=== PATIENT | female | born 1955 | race Hispanic/Latino ===

== ENCOUNTER 2019-01-24 15:25 | Observation (INO) | payer OTHER ==
[~2019-01-24] VITALS: Ht 152.4 cm; Wt 71.7 kg
--- OUTSIDE RECORDS SUMMARY | 2019-01-24 15:28 | XMS REPORT ---
Author Author [facility] Address Unknown Phone Unavailable Care Team Providers Care Public Interviewer Name Role Phone AFSANEH MCADAMS Unavailable Unavailable SNEHA CAMILO Unavailable Unavailable CECILIO RIVERA Unavailable Unavailable Problems This patient has no known problems. Allergies, Adverse Reactions, Alerts This patient has no known allergies or adverse reactions. Medications This patient has no known medications. Results Test Description Test Time Test Comments Text Results Atomic Results Result Comments TISSUE EXAM 2018-04-11 13:15:00 Surgical Pathology Report Case: [id number] Authorizing Provider: Jw Mcadams MD Collected: 03/31/2018 1130 Ord ering Location: [facility] Received: 03/31/2018 1430 SERVICES Pathologist: Dianne Valentine MD Specimens: A) - Lymph Node, Sumner, Left Axilla B) - Mass, LEFT BREAST LUMPECTOMY,SHORT STITCH=SUPERIOR, LONG STITCH=LATERAL A. LYMPH NODES, LEFT AXILLARY SENTINEL, BIOPSY: - THREE BENIGN LYMPH NODES (0/3) - NO FIBROUS SCARRING IDENTIFIEDB. BREAST, LEFT, NEEDLE GUIDED LUMPECTOMY: - NO RESIDUAL CARCINOMA IDENTIFIED, PATHOLOGICAL COMPLETE RESPONSE (PCR) - COLUMNAR CELL CHANGES - USUAL DUCTAL HYPERPLASIA, FOCAL - STROMAL CHANGES ASSOCIATED WITH THERAPY EFFECT, EXTENSIVE - SCLEROSING ADENOSIS - CLIP IDENTIFIED - MICROCALCIFICATIONS ASSOCIATED WITH BENIGN DUCTS Signing Pathologist Direct Phone Line: [phone] signed by Dianne Valentine MD on 04/11/2018 at 1:15 PMThe lumpectomy specimen displays extensive stromal changes associated with therapy effect that extend to the superior margin. No residual carcinoma is identified.INVASIVE CARCINOMA OF THE BREAST (Breast Invasive - All Specimens)SPECIMEN Procedure: Excision (less than total mastectomy) Specimen Laterality: Left TUMOR Histologic Type: No residual invasive carcinoma Histologic Grade (Kateryna Histologic Score): No residual invasive carcinoma Ductal Carcinoma In Situ (DCIS): Not identified Tumor Extent: Accessory Findings: Lymphovascular Invasion: Not identified Dermal Lymphovascular Invasion: No skin present Microcalcifications: Present in non-neoplastic tissue Treatment Effect in the Breast: No residual invasive carcinoma is present in the breast after presurgical therapy Treatment Effect in the Lymph Nodes: No lymph node metastases and no prominent fibrous scarring in the nodes MARGINSLYMPH NODES Regional Lymph Nodes: Uninvolved by tumor cells Number of Lymph Nodes Examined: 3 Number of Sumner Nodes Examined: 3 PATHOLOGIC STAGE CLASSIFICATION (pTNM, AJCC 8th Edition) TNM Descriptors: y (post-treatment) Primary Tumor (Invasive Carcinoma) (pT): pT0 Regional Lymph Nodes (pN): Modifier: (sn): Only sentinel node(s) evaluated. Category (pN): pN0 A. [id number]. 75037Lcfgxfqhj neoplasm of left breast, estrogen receptor negative A. Sumner lymph node, axilla. B. Left breast lumpectomy, short stitch superior, long stitch lateralPart A. Received in formalin labeled with the patient's name and "sentinel lymph node, left axilla" are two ritter-yellow fibrofatty tissue fragments measuring in aggregate 4.6 x 2.4 x 1.3 cm. Three lymph nodes are identified within the specimen. Section code: A1, one lymph node, bisected; A2, two lymph nodes; A3-A4, remainder of fat, entirely submitted.Part B. Received in formalin labeled with the patient's name and "left breast lumpectomy" consists of a 65.3 gm, 7.5 (superior to inferior) x 6.7 (medial to lateral) x 3.6 cm (superficial to deep) cm ovoid partial mastectomy oriented with a short stitch at the superior and a long stitch at the lateral aspects. A guide wire is identified exiting from the lateral aspect. The specimen is serially sectioned from medial to lateral into 7 consecutively ordered slices. A 1.7 x 1.3 x 1.4 cm fibrous area of concern is present in slices 3 and 4, abutting the superior margin, and located 0.7 cm from the posterior margin, 0.8 cm from the anterior margin, 1.5 cm from the medial margin, 2.1 cm from the lateral margin, and 3.6 cm from the inferior margin. A marker clip is present (slice #3). The remaining breast parenchyma is mainly fibrofatty with no focal lesions.Ink code: Blue-superior, red-inferior, yellow- anterior, black-deep, orange-medial and green-lateral.Entire specimen was submitted. Section code: B1-B7, medial margin, perpendicular sections, entirely submitted; B8-B13, lateral margin, perpendicular sections, entirely submitted; B14-B15, slice 3, superior aspect (B15 section with clip); B16-B18, slice 3, sections inferior to B14-B15; B19-B20, slice 3 sections inferior to B16-B18; B21-B22, slice 3 inferior aspect, mirror sections; B23-B24, slice 4 superior aspect; B25, slice 4, inferior to B23-B24; B26-B27, slice 4 inferior to B25; B28-B29, slice 4, inferior aspect; B30, slice 5, superior aspect; B31-B33, slice 5 inferior to B30 (B31-B32 mirror sections); B34-B35, slice 5, inferior to B31- B33; B36-B38, slice 5 inferior aspect (B37-B38 mirror sections); B39, slice 6 superior aspect; B40-B41, slice 6 sections inferior to B39; B42-B44, slice 6 sections inferior to B40-B41 (B42-B43 mirror sections); B45-B47, slice 6, inferior aspect (B45-B46 mirror sections); B48-B49, slice 2, superior (mirror sections); B50-B53, slice 2 mid portion (B50-B51 and B52-B53 mirror sections); B54-B55, slice 2, inferior (mirror sections). OK/ew A. - B: Performed. MM, DIGITAL, MAMMO, PATHOLOGY, LOCAL, LEFT 2018-03-31 09:17:00 Reason for exam:- >left breast cancer--s/p chemo #[id number] - MM, DIGITAL, MAMMO, PATHOLOGY, LOCAL, LEFTNEEDLE LOCALIZATION: 03/31/2018CLINICAL: Mammographic guided needle localization of a clip in the left upper-inner breast. Outside mammograms and ultrasound were reviewed. PATIENT CONSENT: The procedure, risks and benefits, alternatives were discussed with the patient. Informed consent was obtained. A time-out was performed. PROCEDURE DESCRIPTION: Following universal protocol, patient and site verification was performed with a "time out" prior to the procedure. Informed consent was obtained. Preliminary mammographic grid image of the left breast confirmed the presence of a biopsy clip in the left upper-inner breast at 11-12:00. The skin was cleansed. 2 cc's of 2% Lidocaine was used for local anesthesia. Using a superior approach, a 7 cm Kopans needle was used to localize the target. An orthogonal view was obtained to confirm the proper depth of the localization needle and the needle was exchanged for a wire using standa rd hookwire technique. Post-localization mammographic views demonstrated the clip along the reinforced segment of wire. There were no immediate complications. The patient tolerated the procedure well and left the department in good condition. Labeled films were sent with the patient to the OR. IMPRESSION: NEEDLE LOCALIZATIONStatus post successful needle localization of a clip in the left breast. Bowen Lagos M.D. ds/:03/31/2018 09:17:21 Financial Auditor: Ailyn GARCIA)([place]), [facility] [address] CULTURE + SMEAR 2017-11-09 08:37:00 CULTURE (BEAKER) (test rodt=2032) No acid-fast bacilli isolated in 42 days AFB SMEAR (BEAKER) (test kkat=040) No acid fast bacilli seen FUNGUS CULTURE + [id number] 09:32:00* Test Item Value Reference Range Comments CULTURE (BEAKER) (test xugk=6285) 2 out of 3 media Non-sporulating mold FUNGUS SMEAR (BEAKER) (test ezqx=1423) No fungi seen ANG, CV ACCESS, [id number] 11:49:00Reason for Exam:->Malignant neoplasm of unspecified site of left female breastFINAL REPORT Right internal jugular chest port insertion History: Left- sided breast cancer. Modality: Sonography and fluoroscopy. Sedation: Moderate sedation was administered. 1 mg of Versed and 50 mcg of fentanyl IV was used for moderate sedation monitored under my direction. Total intra-service time of sedation was 30 minutes. The patient's vital signs were monitored throughout the procedure and recorded in the patient's medical record by the nurse. Psychologist: Myles Soto MD Verification Rep: MD Félix (Fellow). Approach: Right internal jugular vein Estimated blood loss: < 5 cc. Specimen: None. Fluoroscopy Time: 0.3 min.Reference Air Kerma (Ka, r): 2.3 mGy. Technique: Informed written consent was obtained. Discussion of risks, benefits, and alternatives were made with the patient. The patient expressed und erstanding and agreed to proceed. A universal timeout was performed prior to st arting the procedure. All elements maximal sterile barrier technique was utiliz ed for this procedure, including utilization of sterile scrub solution for skin prep, a large sterile sheet to cover the areas of the patient that were not prep ped, and hand hygiene, mask, head covering, and sterile gown for performing radi ologist and scrub technologist. The skin was anesthetized with 2% lidocaine. Ul trasound evaluation showed a patent and compressible right internal jugular vein , which was punctured under direct real-time ultrasound guidance with a micropun cture needle. An ultrasound image was saved to PACS. A 0.018 inch wire was p laced through the needle into the right atrium. A 4 Thai micropuncture sheath was placed. A subcutaneous tunnel and pocket were created in the right anterior chest wall by blunt dissection. The pocket was flushed with antibiotic solution . A 6 Thai Bard single lumen power injectable port was placed within the pocke t and the catheter brought through the tunnel. The catheter was cut at 23 cm. A peel-away sheath was placed in the right IJ vein and the catheter was advanced t hrough the sheath, with its distal tip terminating in the cavoatrial junction. T he peel-away sheath was removed. The port was flushed and aspirated easily follo wing placement. The skin incision was closed with Monocryl and Dermabond. The small jugular incision site was closed using Dermabond. The patient tolerated t he procedure well and left the department in the same condition. Patient receive d 1 gram of Vancomycin intravenously pre-procedure. Results: Spot rad iograph of the chest demonstrates the new right IJ Port-A-Cath to lie in the exp ected position with its tip overlying the cavoatrial junction. Impression: Successful, uncomplicated placement of a right internal jugular chest port using sonographic and fluoroscopic guidance and conscious sedation. The port is ready for immediate use. Signed: Myles Soto MDRep ort Verified Date/Time: 10/11/2017 11:49:46 Reading Location: [facility] P048 Angio Body Reading Room Electronically signed by: MYLES SOTO MD on 018 11:49 AM PT/[id number] 08:44:00* Test Item Value Reference Range Comments PROTIME (BEAKER) (test imwy=270) 13.8 seconds 11.7-14.7 INR (BEAKER) (test xbmj=928) 1.1 <=5.9 PARTIAL THROMBOPLASTIN TIME (BEAKER) (test nvik=171) 31.4 seconds 22.5-36.0 RECOMMENDED COUMADIN/WARFARIN INR THERAPY RANGESSTANDARD DOSE: 2.0 - 3.0 Inclu raul: PROPHYLAXIS for venous thrombosis, systemic embolization; TREATMENT for ajay ous thrombosis and/or pulmonary embolus.HIGH RISK: Target INR is 2.5-3.5 for pat ients with mechanical heart valves.PLATELET [id number] 08:26:00* Test Item Value Reference Range Comments PLATELET COUNT (BEAKER) (test awae=233) 254 K/CU MM 150-450 FINE NEEDLE ASPIRATE BY [id number] 12:42:00Medical Cytology Report Case: [id number] Authorizing Provider: Cecilio Rivera MD Collected: 09/22/2017 1148 Ordering Location: [facility] Received: 09/23/2017 0858 Pathologist: Adelaida Barclay MD Specimen: Lymph Node, Subcarinal, Station 7 This final report is issued to report the results of special stains AFB and GMS:STATION 7 LYMPH NODE, FNA BY CLINICIAN (DIRECT SMEARS AND CELL BLOCK OF ASPIRATE): - NON-NECROTIZING GRANULOMATOUS INFLAMMATION - AFB AND GMS STAINS ARE NEGATIVE - NEGATIVE FOR MALIGNANCY Signing Pathologist Direct Phone Line: [phone] signed by Adelaida Barclay MD on 09/29/2017 at 12:42 PMPreliminary result electronically signed by Adelaida Barclay MD on 09/26/2017 at 4:47 PMThe main differential diagnoses are sarcoidosis or an infection. Special stains AFB and GMS are negative.Clinical and radiologic correlation is required.Please also see cytopathology reports [id number], 2039 and 2040.05421, 88774, 63460Mrvoohalggx lymphadenopathySTATION 7 LYMPH NODE FNA10 direct smear slidespreapred cell block(A2) from sample col lected in 35 ml cytorich red fixativeCollected: [id number]: [id number] S PRESENT; FOCAL SUGGESTION OF GRANULOMATOUS INFLAMMATION (12:31PM, [place])The follo wing special studies were performed on this case and the interpretation is incor porated in the diagnostic report above:04027, 41717, 57588; 87774 X2 [facility], Department of Pathology, [address] [place] [address], [facility], [facility], [address] [place] [address], [facility], [facility] of [facility], [address] [place] [address], Te l [phone] NEEDLE ASPIRATE BY [id number] 18:05:00Medical Cytology Report Case: [id number] Authorizing Provider: Cecilio Rivera MD Collected: 09/22/2017 1101 Ordering Location: [facility] Received: 09/23/2017 0858 Pathologist: Adelaida Barclay MD Specimen: Lymph Node, Interlobar, Left, Station 11L 11L LYMPH NODE, FNA BY CLINICIAN (CYTOSPINS AND CELL BLOCK OF ASPIRATE): - NON-DIAGNOSTIC ASPIRATE; INSUFFICIENT CELLULARITY Signing Pathologist Direct Phone Line: [phone] signed by Adelaida Barclay MD on 09/26/2017 at 6:05 PMPlease also see cytopathology reports [id number], 2040 and 2041.50194, 24267, 33406Mzxpqahmrqo lymphadenopathy1 1L LYMPH NODE FNA8 direct smear slidesPrepared cell block(A2) using collodion ba g from 25 ml cytorich red fixative sampleCollected: [id number]: 550328ZXILEG 1-4: BRONCHIAL CELLS, BLOOD & FEW HISTIOCYTES; NO LYMPHOCYTES SEEN; INADEQUATE (11:34AM, )[facility], Department of Pathology, [address] [place] [address], [facility]croaCity [facility], [facility], [address] [place] [address], [facility], Department of [facility]ology, [address] [place] [address], UQUS NEEDLE ASPIRATE BY EBUS 2017-09-26 18:02:00Medical Cytology Report Case: [id number] Authorizing Provider: Cecilio Rivera MD Collected: 09/22/2017 1132 Ordering Location: [facility] Received: 09/22/2017 6379 Pathologist: Adelaida Barclay MD Specimen: Lymph Node, Lower Paratracheal, Right, Station 4R 4R LYMPH NODE, FNA BY CLINICIAN (DIRECT SMEARS AND CYTOSPINS): - NEGATIVE FOR EPITHELIAL MALIGNANCY - NO DEFINITE GRANULOMA SEEN - POLYMORPHOUS LYMPHOCYTES, FAVOR REACTIVE Signing Pathologist Direct Phone Line: [phone] signed by Adelaida Barclay MD on 09/26/2017 at 6:02 PMPlease also see cytopathology reports [id number], 2040 and 2042.13622, 98262Oplsrrlscdx eirnltnoklhtzxy4N LYMPH NODE FNA6 direct smear slides; 2 cytospins prepared from sample collected in 25 ml cytorich red fixativeCollected: [id number]: [id number] LYMPHOCYTES; NO DEFINITE GRANULOMA; NO EPITHELIAL MALIGNANCY (12:08PM, )[facility], Department of Pathology, [address] [place] [address], XzhijqCity [facility], [facility] of [facility], [address] [place] [address], EpqnysCity [facility], Department of Pathology, [address] [place] [address], ECTL NEEDLE ASPIRATE BY EBUS 2017-09-26 17:53:00Medical Cytology Report Case: [id number] Authorizing Provider: Cecilio Rivera MD Collected: 09/22/2017 1112 Ordering Location: [facility] Received: 09/23/2017 0858 Pathologist: Adelaida Barclay MD Specimen: Lymph Node, Lower Paratracheal, Left, Station 4L 4L LYMPH NODE, FNA BY CLINICIAN (CYTOSPINS): - PREDOMINANTLY BRONCHIAL EPITHELIAL CELLS PRESENT - NO LYMPHOID TISSUE SEEN Signing Pathologist Direct Phone Line: [phone] signed by Adelaida Barclay MD on 09/26/2017 at 5:53 PMPlease also see cytopathology reports [id number], 204 and 2042.62552Uurghmxczho fjcyuhmtyvfrnkr3V LYMPH NODE FNAPrepared 4 cytospins from 25 ml cytorich red fixative sampleCollected: [id number]: [id number] Foundation Hospital, Department of Pathology, [address] [place] [address], JnhqvoCity [facility], Department of Pathology, [address] [place] [address], BdwvwgCity of [facility], Department of Pathology, [address] [place] [address], GWJJ CYTOMETRY [id number] 10:01:00* Test Item Value Reference Range Comments FLOW CYTOMETRY RESULT POINTER (BEAKER) (test eqdv=4032) See Separate Report FLOW CYTOMETRY AP CASE # (BEAKER) (test uwtk=6526) [id number] BRONCHIAL CULTURE + GRAM [id number] 23:56:00* Test Item Value Reference Range Comments CULTURE (BEAKER) (test hivh=7683) 3+ Normal respiratory josh present GRAM STAIN RESULT (BEAKER) (test wimr=2277) 2+ WBCs GRAM STAIN RESULT (BEAKER) (test ikqx=86165) 2+ gram negative rods GRAM STAIN RESULT (BEAKER) (test beoa=41681) 2+ gram negative coccobacilli GRAM STAIN RESULT (BEAKER) (test bbpd=559491) 2+ gram positive cocci in chains and pairs GRAM STAIN RESULT (ROSALIA) (test hqwq=375694) 1+ gram positive rods SPIN/CONCENTRATION [id number] 10:38:00* Test Item Value Reference Range Comments CONCENTRATION CHARGED (ROSALIA) (test nece=1728) Done FLOW [id number] 16:26:00Flow Cytometry Report Case: [id number] Authorizing Provider: Cecilio Rivera MD Collected: 09/22/2017 1210 Ordering Location: [facility] Received: 09/23/2017 0711 Pathologist: Octavio Leal MD Specimen: Other SUBCARINAL STATION 7 LYMPH NODE, FLOW CYTOMETRY:NO MONOCLONAL B CELL POPULATION.NO ABNORMAL T CELL POPULATION.CORRELATION WITH MORPHOLOGIC FINDINGS REQUIRED. 34542Nbnumzklwoc adenopathySUBCARINAL STATION 7 LYMPH NODECD8, surface-kappa, CD56, surface- lambda, CD5, CD19, CD10, CD3, CD20, CD4, WA85Vnviwkyf Viability: 98.7% Blasts: Not identified. Lymphocytes: Bright CD45+ lymphocytes comprise 75.2% of total cells. T cells show a CD4:CD8 ratio of 7.9. B cells are polytypic with a kappa:lambda ratio of 1.3. Myeloid/monocytic populations: As identified by CD45 and light scatter characteristics, granulocytes comprise the majority of cells analyzed, and monocytes comprise 1.0% of total cells. The remaining events analyzed represent nonviable cells, non-hematolymphoid cells, and/or debris. These tests were developed and their performance characteristics determined by [facility]. They have not been cleared or approved by the U.S. Food and Drug Administration. The FDA has determined that such clearance or approval is not n ecessary. It should not be regarded as investigational or for research. This lab oratory is certified under the Clinical Laboratory Improvement Amendments of 198 8 ("CLIA") as qualified to perform high-complexity clinical testing.EBUS FNA [id number] 10:00:00* Test Item Value Reference Range Comments CYTOLOGY RESULT POINTER (BENEREYDA) (test vilv=3348) See Separate Report EBUS FNA [id number] 10:00:00* Test Item Value Reference Range Comments CYTOLOGY RESULT POINTER (BENEREYDA) (test urkw=5614) See Separate Report EBUS FNA [id number] 10:00:00* Test Item Value Reference Range Comments CYTOLOGY RESULT POINTER (BEAKER) (test muja=9907) See Separate Report EBUS FNA [id number] 17:00:00* Test Item Value Reference Range Comments CYTOLOGY RESULT POINTER (BEAKER) (test hjbp=3325) See Separate Report
--- NOTE | 2019-01-24 16:50 | Diagnostic Imaging Report ---
Chest, 2 views, 01/24/2019. History: Chest pain. Comparison: None available. Findings: The cardiomediastinal silhouette and pulmonary vasculature are within normal limits. There is biapical pleural thickening and left upper lobe scarring. There is no focal consolidation or pleural effusion. Degenerative changes are present within the thoracic spine. There are no acute osseous or soft tissue abnormalities. Surgical clips are noted in the left breast. Impression: No acute cardiopulmonary abnormality. Signed by: Rob Coyle on 01/24/2019 4:47 PM
[2019-01-24 16:52] LABS: BASOPHILS # (AUTO) 0.1 (0.0-0.1); EOSINOPHILS # (AUTO) 0.1 (0.0-0.4); EOSINOPHILS % 1.4 % (0.0-6.0); HEMATOCRIT 41.7 % (34.2-44.1); HEMOGLOBIN 14.1 g/dL (12.0-16.0); LYMPHOCYTES # (AUTO) 0.9 (1.0-3.2); LYMPHOCYTES % 12.4 % (18.0-39.1); MEAN CORPUSCULAR HGB CONC 33.8 g/dL (31-35); MEAN CORPUSCULAR VOLUME 85.6 fL (81-99); MONOCYTES # (AUTO) 0.7 (0.2-0.8); MONOCYTES % 9.6 % (4.4-11.3); NEUTROPHILS # (AUTO) 5.3 (2.1-6.9); PLATELET COUNT 292 x10e3/uL (140-360); RED BLOOD COUNT 4.87 x10e6/uL (3.6-5.1); RED CELL DISTRIBUTION WIDTH 12.9 % (11.7-14.4)
[2019-01-24 17:03] LABS: INR 0.94; PROTHROMBIN TIME 13.1 seconds (11.9-14.5)
[2019-01-24 17:04] LABS: PARTIAL THROMBOPLASTIN TIME 27.9 seconds (23.8-35.5)
[2019-01-24 17:14] LABS: ALANINE AMINOTRANSFERASE 12 IU/L (0-55); ALBUMIN 3.8 g/dL (3.5-5.0); ALKALINE PHOSPHATASE 132 IU/L (40-150); ANION GAP 14.6 mmol/L (8-16); BLOOD UREA NITROGEN 5 mg/dL (7-26); BUN/CREATININE RATIO 7 (6-25); CARBON DIOXIDE 21 mmol/L (22-29); CHLORIDE 101 mmol/L (98-107); CREATINE KINASE 72 IU/L (29-168); CREATININE, SERUM 0.76 mg/dL (0.57-1.11); EST GLOMERULAR FILTRATION RATE > 60 ML/MIN (60-); GLUCOSE 192 mg/dL (74-118); POTASSIUM 3.6 mmol/L (3.5-5.1); SODIUM 133 mmol/L (136-145)
[2019-01-24 17:36] LABS: MAGNESIUM 1.8 MG/DL (1.3-2.1)
[2019-01-24 17:56] LABS: THYROID STIMULATING HORMONE 1.758 uIU/mL (0.350-4.940)
[2019-01-24] MEDS ORDERED: ASPIRIN 325 MG TAB PO ONE (18:00)
[2019-01-24] MEDS ORDERED: ASPIRIN 81 MG CHEW TAB ONE (18:05)
[2019-01-24] MEDS ORDERED: FAMOTIDINE 20 MG/2 ML VIAL IV ONE (18:27)
[2019-01-24] MEDS ORDERED: SODIUM CHLORIDE 0.9% 1000ML 1,000 ML IV STA (18:27)
[2019-01-24] MEDS ORDERED: ENOXAPARIN SODIUM INJ 100 MG/ML SYR SC STA (18:27)
[2019-01-24] MEDS ORDERED: ENOXAPARIN INJ 80 MG/0.8 ML SYR SC ONE (18:45)
[2019-01-24] MEDS ORDERED: LEVOTHYROXINE75 MCG PO (20:10)
[2019-01-24] MEDS ORDERED: LASIX20 MG PO (20:10)
[2019-01-24] MEDS ORDERED: LORATADINE10 MG PO (20:11)
[2019-01-24] MEDS ORDERED: OMEPRAZOLE40 MG PO (20:11)
[2019-01-24] MEDS ORDERED: SODIUM CHLORIDE 0.9% 50ML 50 ML ONE (20:33)
[2019-01-24] MEDS ORDERED: IOPAMIDOL 370 MG/ML 200 ML INFUS..BTL INJ ONE (20:33)
--- NOTE | 2019-01-24 20:41 | Diagnostic Imaging Report ---
EXAMINATION: CT scan of the chest with contrast. TECHNIQUE: Helical CT images of the chest were performed from the lung apices to the level of the adrenal glands after the intravenous administration of 100 cc of Isovue 300. Coronal and sagittal reformatted images were obtained.Dose modulation, iterative reconstruction, and/or weight based adjustment of the mA/kV was utilized to reduce the radiation dose to as low as reasonably achievable. COMPARISON: None. CLINICAL HISTORY:Chest pain DISCUSSION: LINES/TUBES: None. LUNGS AND AIRWAYS: Scattered nodular airspace opacities in a upper lung and peripheral subpleural distribution. The airways are normal, without endobronchial lesions. PLEURA: No pneumothorax or pleural effusions. HEART AND MEDIASTINUM: The thyroid gland is normal. The heart and pericardium are within normal limits. LYMPH NODES: Reactive mediastinal lymph nodes ABDOMEN: Enlarged liver. BONES AND SOFT TISSUES: No acute bony abnormalities. IMPRESSION: No pulmonary embolism. Nonspecific nodular airspace opacities in a upper lung and peripheral distribution likely infectious or inflammatory. Signed by: Dr. Juan Pablo Cates M.D. on 01/24/2019 8:38 PM
[2019-01-24] MEDS ORDERED: ACETAMINOPHEN 325 MG TAB PO PRN (21:00)
[2019-01-24] MEDS ORDERED: SODIUM CHLORIDE FLUSH 10 ML SYR INJ PRN (21:00)
[2019-01-24] MEDS ORDERED: ENALAPRILAT IV INJ 1.25 MG/ML VIAL IV PRN (21:00)
[2019-01-24] MEDS ORDERED: ZOLPIDEM TARTRATE 5 MG TAB PO PRN (21:00)
[2019-01-24] MEDS ORDERED: DIPHENHYDRAMINE HCL INJ 50 MG/ML VIAL IV PRN (21:00)
[2019-01-24] MEDS: INSULIN REGULAR, HUMAN 100 UNIT/1 ML 3ML VIAL SQ SCH (21:23)
[2019-01-24 21:26] VITALS: BP 148/85
[2019-01-24 22:07] VITALS: BP 148/85
[2019-01-24 22:13] VITALS: BP 148/85
[2019-01-24 22:19] VITALS: BP 148/85
[2019-01-25] VITALS (7 sets, daily range): BP systolic 117–156; BP diastolic 73–79
[2019-01-25 05:36] LABS: BASOPHILS # (AUTO) 0.1 (0.0-0.1); EOSINOPHILS # (AUTO) 0.3 (0.0-0.4); EOSINOPHILS % 4.3 % (0.0-6.0); HEMATOCRIT 40.9 % (34.2-44.1); HEMOGLOBIN 13.6 g/dL (12.0-16.0); LYMPHOCYTES # (AUTO) 0.9 (1.0-3.2); LYMPHOCYTES % 13.9 % (18.0-39.1); MEAN CORPUSCULAR HEMOGLOBIN 28.6 pg (28-32); MEAN CORPUSCULAR HGB CONC 33.3 g/dL (31-35); MEAN CORPUSCULAR VOLUME 86.1 fL (81-99); MONOCYTES # (AUTO) 0.9 (0.2-0.8); MONOCYTES % 13.6 % (4.4-11.3); NEUTROPHILS # (AUTO) 4.5 (2.1-6.9); NEUTROPHILS % 66.6 % (38.7-80.0); PLATELET COUNT 261 x10e3/uL (140-360); RED BLOOD COUNT 4.75 x10e6/uL (3.6-5.1); RED CELL DISTRIBUTION WIDTH 12.9 % (11.7-14.4)
[2019-01-25 05:58] LABS: ALANINE AMINOTRANSFERASE 13 IU/L (0-55); ALBUMIN 3.3 g/dL (3.5-5.0); ALBUMIN/GLOBULIN RATIO 0.9 (0.8-2.0); ALKALINE PHOSPHATASE 120 IU/L (40-150); ANION GAP 16.5 mmol/L (8-16); BLOOD UREA NITROGEN 7 mg/dL (7-26); BUN/CREATININE RATIO 10 (6-25); CALCIUM 9.5 mg/dL (8.4-10.2); CARBON DIOXIDE 22 mmol/L (22-29); CHLORIDE 107 mmol/L (98-107); CHOL/HDL RATIO 4.8 (3.0-3.6); CHOLESTEROL 181 MD/DL (0-199); CREATININE, SERUM 0.73 mg/dL (0.57-1.11); EST GLOMERULAR FILTRATION RATE > 60 ML/MIN (60-); GLUCOSE 175 mg/dL (74-118); HDL CHOLESTEROL 38 MG/DL (40-60); LDL CHOLESTEROL 108 MG/DL (60-130); MAGNESIUM 2.1 MG/DL (1.3-2.1); PHOSPHORUS 2.2 MG/DL (2.3-4.7); POTASSIUM 3.5 mmol/L (3.5-5.1); SODIUM 142 mmol/L (136-145); TRIGLYCERIDES 173 MG/DL (0-149)
[2019-01-25] MEDS ORDERED: LEVOTHYROXINE SODIUM 75 MCG TAB PO SCH (06:00)
[2019-01-25] MEDS ORDERED: FAMOTIDINE 20 MG TAB PO SCH (07:30)
[2019-01-25] MEDS: INSULIN REGULAR, HUMAN 100 UNIT/1 ML 3ML VIAL SQ SCH ×2 (07:30→11:30)
[2019-01-25] MEDS ORDERED: PANTOPRAZOLE SOD 40 MG TABEC PO SCH (09:00)
[2019-01-25] MEDS ORDERED: METOPROLOL TARTRATE 50 MG TAB PO SCH (09:00)
[2019-01-25] MEDS ORDERED: LORATADINE 10 MG TAB PO SCH (09:00)
--- NOTE | 2019-01-25 14:00 | NUR ---
DISCUSSED IN BARRIER ROUNDS PREFORMING LABS AND TESTS, SUGARS ARE GOOD IN 170 RANGE BUT DOES NOT USUALLY MONITER AT HOME POSSIBLE DISCHARGE FOR TODAY
[2019-01-25 14:58] LABS: CREATINE KINASE MB 2.5 ng/mL (0-5.0)
[2019-01-25] MEDS ORDERED: METFORMIN HCL500 MG PO (15:10)
[2019-01-25] MEDS ORDERED: LISINOPRIL10 MG PO (15:11)
--- NOTE | 2019-01-25 21:54 | History and Physical ---
PRIMARY CARE PHYSICIAN[facility] CHIEF COMPLAINT: Chest pain and pressure. HISTORY OF PRESENT ILLNESS: This is a 63-year-old female with past medical history of hypothyroidism, left breast cancer, and GERD, who presented to the ER with complaints of chest pain, more like a pressure that started yesterday morning and progressively worsened throughout the day. She denies any nausea, vomiting, diaphoresis, shortness of breath, cough, abdominal pain, or change in LOC. She reports the pain is nonradiating or no alleviating factors. She reports having recent stress due to her father being in the hospital. She otherwise states that she has been feeling generalized weakness, increased thirst, and weight gain. PAST MEDICAL HISTORY: 1. Hypothyroidism. 2. Left breast CA. 3. Gastroesophageal reflux disease. 4. Seasonal allergies. PAST SURGICAL HISTORY: 1. Left lumpectomy. 2. Bilateral cataract surgeries. FAMILY MEDICAL HISTORY: Father has hypertension. Mother had diabetes and stroke. SOCIAL HISTORY: She quit smoking about a year ago and she denies any alcohol or illicit drug use. ALLERGIES: NO KNOWN ALLERGIES. REVIEW OF SYSTEMS: GENERAL: Fatigue and generalized weakness. HEENT: No head trauma or mouth sores. LUNGS: No shortness of breath or cough. CARDIOVASCULAR: Chest pressure. GI: No nausea, vomiting, or abdominal pain. NEUROLOGIC: Alert and awake. MUSCULOSKELETAL: No edema. SKIN: Dry. PHYSICAL EXAMINATION: VITAL SIGNS: Temperature is 97.4, pulse is 64, respirations 20, blood pressure is 117/75, pulse ox is 92% on room air. GENERAL: No acute distress. HEENT: Normocephalic, atraumatic. NECK: Supple and midline. LUNGS: Clear to auscultation. CARDIOVASCULAR: Normal rate and rhythm. GI: Soft and nontender. NEUROLOGIC: Alert, awake, and oriented x3. MUSCULOSKELETAL: Moves all extremities. SKIN: Dry and intact. PSYCH: Calm. LABORATORY DATA: WBC 6.76, hemoglobin 13.6, hematocrit 40.9, and platelets are 261. Sodium is 142, potassium is 3.5, BUN is 7, creatinine is 0.73. Estimated GFR is greater than 60. Hemoglobin A1c is 7.6, magnesium is 2.1, AST 20, ALT 13. Cardiac enzymes x2 negative. CK 58, triglycerides 173, LDL 108, HDL 38. TSH is 1.758, PT 13.1, INR 0.94, APTT 27.9, D-dimer 0.93. IMAGING DATA: Chest x-ray; no acute cardiopulmonary abnormalities. CT chest; no pulmonary embolism and nonspecific nodular airspace opacities in the upper lungs and peripheral distribution, likely infectious or inflammatory. IMPRESSION: 1. Chest pain, ruled out acute coronary syndrome. Cardiac enzymes x2 negative. Likely due to increased blood pressure. Blood pressure is now improved. EKG; normal sinus rhythm. D-dimer was slightly elevated, chest CT was negative for pulmonary embolism. 2. New onset of diabetes type 2. Hemoglobin A1c was 7.6. We will start on insulin now while in the hospital. We will start metformin 48 hours after use of contrast. She is advised to follow up with her PCP for re-evaluation of diabetes and medication. 3. New onset of hypertension. We will start on low dose of PAMELA inhibitor, lisinopril 10 mg daily. 4. Hypothyroidism. We will continue on thyroid. 5. Gastroesophageal reflux disease. We will continue with omeprazole. PLAN: Discharge home today on metformin and lisinopril, to follow up with her PCP, Dr. Acuna, in 1 to 2 weeks. Dictated by PAYAM Brown Thais Frazier MD MY/MODL /[id number] cc: Jean Acuna MD
[2019-01-26] MEDS ORDERED: FUROSEMIDE 20 MG TAB PO SCH (09:00)
== END 2019-01-25 16:56 | disposition home or self-care (01) ==
LOC: ER 15:25 → ERHOLD 21:00 → IMCU 21:27
PROVIDERS: ADMIT Internal Medicine; ATTEND Internal Medicine
DX: R07.89 Other chest pain (principal); E03.9 Hypothyroidism, unspecified; Z85.3 Personal history of malignant neoplasm of breast; K21.9 Gastro-esophageal reflux disease without esophagitis; Z83.3 Family history of diabetes mellitus; Z82.3 Family history of stroke; Z82.49 Family history of ischemic heart disease and other diseases of the circulatory system; Z87.891 Personal history of nicotine dependence; E11.9 Type 2 diabetes mellitus without complications; I10 Essential (primary) hypertension
CPT/HCPCS: 36415 ×2; 71046; 71260; 80053 ×2; 80061; 82550 ×2; 82553 ×2; 83036; 83735 ×2; 83880; 84100; 84443; 84484 ×2; 85025 ×2; 85379; 85610; 85730; 93005; 99284; G0378 ×2; J7030; Q9967; S0164